=== PATIENT | female | born 1980 | race American Indian/Alaskan Native ===

== ENCOUNTER 2021-06-13 18:29 | Emergency (ER) | payer OTHER ==
[2021-06-13 22:01] LABS: Basophils % (Auto) 0.8 % (0.0-1.8); Eosinophils # (Auto) 0.2 K/mm3 (0.0-0.4); Eosinophils % (Auto) 3.3 % (0.0-4.3); Hematocrit 34.9 % (30.3-42.9); Lymphocytes # (Auto) 2.4 K/mm3 (1.2-5.4); Lymphocytes % (Auto) 36.8 % (13.4-35.0); Mean Corpuscular HGB Conc 32 % (30-34); Mean Corpuscular Volume 83 fl (79-97); Monocytes # (Auto) 0.7 K/mm3 (0.0-0.8); Monocytes % (Auto) 10.9 % (0.0-7.3); Platelet Count 347 K/mm3 (140-440); Red Blood Count 4.21 M/mm3 (3.65-5.03); Red Cell Distribution Width 15.5 % (13.2-15.2)
[2021-06-13 23:06] LABS: Alanine Aminotransferase 21 units/L (7-56); Blood Urea Nitrogen 12 mg/dL (7-17); Hemolysis Index 22
[2021-06-13 23:07] LABS: BUN/Creatinine Ratio 17
[2021-06-13 23:21] LABS: Bacteria,Urine 1+ /HPF (Negative); Mucus,Urine FEW /HPF
[2021-06-13 23:52] LABS: Color,Urine Straw (Yellow)
[2021-06-13 23:55] LABS: Bilirubin,Urine Negative (Negative); Blood,Urine Trace (Negative); Protein,Urine <15 mg/dL mg/dL (Negative)
[2021-06-13 23:56] LABS: Urobilinogen,Urine < 2.0 mg/dL (<2.0)
--- NOTE | 2021-06-14 00:14 | Emergency Department Report ---
ED Dizziness HPI - General Chief Complaint: Dizziness Stated Complaint: WEAKNESS Time Seen by Provider: 06/13/21 21:20 Source: patient, EMS Mode of arrival: Wheelchair Limitations: No Limitations - History of Present Illness Initial Comments: pt presents to ed with complaint of dizziness MD Complaint: dizziness -: Gradual, days(s) Timing: gradual onset Description: lightheadedness History of Same: No History of Trauma: No Worsens With: nothing - Related Data Previous Rx's Medication Instructions Recorded Last Taken Type Divalproex Dr [Depakokarthik Tucker] 500 mg PO DAILY #30 tablet 08/26/14 Unknown Rx Ziprasidone [Geodon] 20 mg PO BID #60 capsule 08/26/14 Unknown Rx buPROPion [Wellbutrin] 150 mg PO DAILY #30 tablet 08/26/14 Unknown Rx hydrOXYzine PAMOATE [Vistaril] 25 mg PO Q6HR #60 capsule 08/26/14 Unknown Rx lamoTRIgine [LaMICtal] 50 mg PO DAILY #30 tablet 08/26/14 Unknown Rx Allergies Allergy/AdvReac Type Severity Reaction Status Date / Time codeine Allergy Hives Verified 08/26/14 04:18 ED Review of Systems ROS: Stated complaint: WEAKNESS Other details as noted in HPI ED Past Medical Hx - Past Medical History Hx Psychiatric Treatment: Yes (BIPOLAR) - Social History Smoking Status: Never Smoker Substance Use Type: Alcohol - Medications Home Medications: Home Medications Medication Instructions Recorded Confirmed Last Taken Type Divalproex Dr [Depakote Dr] 500 mg PO DAILY #30 tablet 08/26/14 Unknown Rx Ziprasidone [Geodon] 20 mg PO BID #60 capsule 08/26/14 Unknown Rx buPROPion [Wellbutrin] 150 mg PO DAILY #30 tablet 08/26/14 Unknown Rx hydrOXYzine PAMOATE [Vistaril] 25 mg PO Q6HR #60 capsule 08/26/14 Unknown Rx lamoTRIgine [LaMICtal] 50 mg PO DAILY #30 tablet 08/26/14 Unknown Rx ED Physical Exam - General Limitations: No Limitations General appearance: alert, in no apparent distress - Head Head exam: Present: atraumatic, normocephalic - Eye Eye exam: Present: normal appearance - ENT ENT exam: Present: mucous membranes moist - Neck Neck exam: Present: normal inspection - Respiratory Respiratory exam: Present: normal lung sounds bilaterally. Absent: respiratory distress - Cardiovascular Cardiovascular Exam: Present: regular rate, normal rhythm. Absent: systolic murmur, diastolic murmur, rubs, gallop - GI/Abdominal GI/Abdominal exam: Present: soft, normal bowel sounds - Extremities Exam Extremities exam: Present: normal inspection - Back Exam Back exam: Present: normal inspection - Neurological Exam Neurological exam: Present: alert, oriented X3 - Psychiatric Psychiatric exam: Present: normal affect, normal mood - Skin Skin exam: Present: warm, dry, intact, normal color. Absent: rash ED Course Vital Signs 06/13/21 18:30 Temperature 98 F Pulse Rate 104 H Respiratory 16 Rate Blood Pressure 153/99 [Left] O2 Sat by Pulse 100 Oximetry ED Medical Decision Making - Lab Data Result diagrams: 06/13/21 21:38 06/13/21 21:38 Critical care attestation.: If time is entered above; I have spent that time in minutes in the direct care of this critically ill patient, excluding procedure time. ED Disposition Clinical Impression: Dizziness, UTI (urinary tract infection) Disposition: 01 HOME / SELF CARE / HOMELESS Is pt being admited?: No Does the pt Need Aspirin: No Condition: Stable Referrals: LEFTY BUI MD [Primary Care Provider] - 3-5 Days
[2021-06-14 01:08] VITALS: BP 131/95
== END 2021-06-14 00:31 | disposition home or self-care (01) ==
LOC: ED 18:29
DX: N39.0 Urinary tract infection, site not specified (principal); R42 Dizziness and giddiness; F31.9 Bipolar disorder, unspecified; Z88.5 Allergy status to narcotic agent; Z79.899 Other long term (current) drug therapy; Z72.89 Other problems related to lifestyle
CPT/HCPCS: 36415; 80053; 81001; 84484; 85025; 87086; 99283